=== PATIENT | male | born 1990 | race African-American/Black ===

== ENCOUNTER 2020-02-14 13:40 | Emergency (ER) | payer MEDICAID, OTHER ==
[~2020-02-14] VITALS: Ht 177.8 cm; Wt 68.0 kg
[2020-02-14] MEDS ORDERED: TETANUS, DIPHTHERIA, PERTUSSIS VAC/PF 0.5ML (>7YR OLD) IM ONE (15:00)
[2020-02-14] MEDS ORDERED: SILVER SULFADIAZINE 1% CREAM 25GM TOP ONE (15:00)
[2020-02-14] MEDS ORDERED: IBUPROFEN 600MG TABLET PO ONE (15:00)
[2020-02-14 15:18] VITALS: BP 126/74
== END 2020-02-14 15:31 | disposition home or self-care (01) ==
LOC: ER 14:21
DX: T21.12XA Burn of first degree of abdominal wall, initial encounter (principal); T25.122A Burn of first degree of left foot, initial encounter; T30.0 Burn of unspecified body region, unspecified degree; T79.9XXA Unspecified early complication of trauma, initial encounter; X08.8XXA Exposure to other specified smoke, fire and flames, initial encounter; W40.9XXA Explosion of unspecified explosive materials, initial encounter; Y93.89 Activity, other specified; Y92.89 Other specified places as the place of occurrence of the external cause; Y99.8 Other external cause status
CPT/HCPCS: 90471; 90715; 99283